=== PATIENT | female | born 2000 | race Caucasian/White ===

== ENCOUNTER 2021-04-17 07:58 | Emergency (ER) | payer BC ==
[~2021-04-17] VITALS: Ht 170.2 cm; Wt 72.6 kg
[2021-04-17 08:04] VITALS: BP 102/55
[2021-04-17] MEDS ORDERED: ONDANSETRON 4 MG ODT PO ONE (08:15)
--- NOTE | 2021-04-17 08:15 | NUR ---
21 YO FEMALE BIBA C/O PATIENT FELL AND HIT HEAD HAS A LACERATION TO RIGHT FOREHEAD, BLEEDING CONTROLLED. PATIENT STATES SHE WAS WALKING IN THE [place] TO HER DORM ROOM AND BELIEVES SHE FELL. DOES NOT REMEMBER HOW SHE FELL, HER FRIEND FOUND HER AND HELPED HER BACK TO HER ROOM AND CALLED AMB. 3/10 PAIN TO RIGHT FOREHEAD, TENDERNESS. PATIENT IS A&OX4, GCS 15, URINE SAMPLE COLLECTED, PLACED IN GOWN AND ON MONITOR. PMH: DENIES NKDA
--- NOTE | 2021-04-17 08:19 | NUR ---
ua done, hcg-neg
[2021-04-17] MEDS ORDERED: ONDANSETRON 4 MG TAB ONE (08:21)
--- NOTE | 2021-04-17 08:22 | NUR ---
po meds given-nadr at this time
--- NOTE | 2021-04-17 08:40 | NUR ---
WOUND IRRIGATED W NORMAL SALINE PER ERMD
--- NOTE | 2021-04-17 08:56 | NUR ---
MD COLIN AT BEDSIDE PERFORMING WOUND CARE.
[2021-04-17] MEDS ORDERED: NACL 0.9% 1,000 ML IV ONE (09:35)
--- NOTE | 2021-04-17 10:06 | NUR ---
IV 20GA RT A/C DONE, BLOOD SENT TO LAB.
[2021-04-17 10:39] LABS: BASOPHILS % (AUTO) 0.4 % (0.0-2.0); EOSINOPHILS % (AUTO) 0.2 % (0.0-4.0); HEMATOCRIT 37.6 % (36-48); HEMOGLOBIN 13.1 g/dL (12.0-16.0); LYMPHOCYTES # (AUTO) 1.1 K/uL (2.5-16.5); LYMPHOCYTES % (AUTO) 17.2 % (20.5-51.1); MEAN CORPUSCULAR HEMOGLOBIN 33 pg (27-31); MEAN CORPUSCULAR HGB CONC 35 g/dL (33-37); MEAN CORPUSCULAR VOLUME 95.5 fL (80-94); MONOCYTES # (AUTO) 0.4 K/uL (0.8-1.0); MONOCYTES % (AUTO) 5.6 % (1.7-9.3); NEUTROPHILS # (AUTO) 4.9 K/uL (1.8-7.7); NEUTROPHILS % (AUTO) 76.6 % (42.2-75.2); PLATELET COUNT (AUTO) 277 K/uL (140-450); RED BLOOD CELL COUNT(AUTO) 3.94 MIL/uL (4.20-5.40); RED CELL DISTRIBUTION WIDTH 12.7 % (11.6-13.7); WHITE BLOOD COUNT (AUTO) 6.4 K/uL (4.8-10.8)
[2021-04-17 10:47] LABS: ANION GAP 15.4 (8-16); CARBON DIOXIDE 21.2 mmol/L (21-32); CREATININE 0.7 mg/dL (0.6-1.3); POTASSIUM 3.6 mmol/L (3.5-5.1)
[2021-04-17 11:00] VITALS: BP 113/69
--- NOTE | 2021-04-17 11:41 | NUR ---
PATIENT AMBULATED TO BATHROOM, STEADY GAIT.
--- NOTE | 2021-04-17 11:49 | NUR ---
MD AT BEDSIDE SPEAKING WITH PATIENT.
--- NOTE | 2021-04-17 11:55 | NUR ---
Patient discharged with v/s stable. Written and verbal after care instructions given and explained. Patient verbalized understanding. Ambulatory with steady gait. All questions addressed prior to discharge. Advised to follow up with PMD.
== END 2021-04-17 11:56 | disposition home or self-care (01) ==
LOC: MED 07:58
DX: S09.90XA Unspecified injury of head, initial encounter (principal); E86.0 Dehydration; R55 Syncope and collapse; F12.10 Cannabis abuse, uncomplicated; W19.XXXA Unspecified fall, initial encounter; Y93.89 Activity, other specified; Y92.89 Other specified places as the place of occurrence of the external cause; Y99.8 Other external cause status
CPT/HCPCS: 36415; 80048; 81002; 81025; 85025; 93005; 96360; 99284; J7030; Q0162